=== PATIENT | male | born 1950 | race Caucasian/White ===

== ENCOUNTER → 2016-09-13 | Day surgery (SDC) | payer OTHER ==
[~2016-09-13] VITALS: Ht 185.4 cm; Wt 114.1 kg
[~2016-09-13] MED LIST: ASPIRIN EC81 MG PO; ATORVASTATIN CA80 MG PO; GLIPIZIDE5 MG PO; METOPROLOL TART25 MG PO; NEURONTIN300 MG PO; VITAMIN D1000 UNIT PO
--- NOTE | ~2016-09-13 | OR ---
PATIENT'S NAME: HERRERA PEREIRA [facility] AGE: 66 Y [address] ROOM: [place] [address] LOCATION: [facility] – [place] ADMIT DATE: 09/13/2016 OR/Procedure Report DISCHARGE DATE: FAMILY PHYSICIAN: Jerson Ortega MD ATTENDING PHYSICIAN: Angie Bosch SURGEON: Og Isbell MD MAINTENANCE SUPERVISOR MECHANICAL: DATE OF PROCEDURE: 09/13/2016 PROCEDURE: Right L4-L5 transforaminal epidural steroid injection. INDICATION: The patient has lumbar disc disease with radiculopathy. The patient also has had epidural injection in the past with minimal relief where he was found to have meralgia paresthetica left side. Today, his main present was low back pain radiating to the foot. Risks, benefits, and alternatives were explained to the patient and wished to proceed. DESCRIPTION OF PROCEDURE: He was taken to the procedure room and placed in prone position. The back was prepped with Betadine x3 and sterile drape applied over top. Fluoroscopy was used to identify the L4-L5 interspace. 3 mL of 1% lidocaine was used to numb the skin. Next, using fluoroscopic guidance, a 22-gauge, 5-inch spinal needle was advanced into position. Once the needle was felt to be in position, 1 mL of contrast was injected and visualized in the AP and lateral views. This showed good spread about the nerve root and epidural space. No intrathecal uptake and no intravascular uptake. Next, a mixture of 2 mL of 2% lidocaine and 10 mg of preservative- free Decadron were injected without complication. Stylette placed, needle removed, and a Band-Aid placed over top. Hemostasis achieved. COMPLICATIONS: None. BLOOD LOSS: None. OG ISBELL MD JJP/modl /[id number] d: 09/14/16 1933 t: 09/17/16 1016, OPERATIVE SUMMARY
== END | disposition disaster alternative care site (69) ==
LOC: GPOC 09-10 10:00 → GSDC 13:54
PROC: 3E0R3BZ Introduction of Anesthetic Agent into Spinal Canal, Percutaneous Approach (ICD-10-PCS; principal; 2016-09-13)
PROC: 3E0R33Z Introduction of Anti-inflammatory into Spinal Canal, Percutaneous Approach (ICD-10-PCS; 2016-09-13)
DX: M51.16 Intervertebral disc disorders with radiculopathy, lumbar region (principal); M48.06 Spinal stenosis, lumbar region; I25.10 Atherosclerotic heart disease of native coronary artery without angina pectoris; I10 Essential (primary) hypertension; E11.9 Type 2 diabetes mellitus without complications; Z87.891 Personal history of nicotine dependence; Z98.890 Other specified postprocedural states
CPT/HCPCS: J1100